=== PATIENT | female | born 1975 | race African-American/Black ===

== ENCOUNTER 2019-12-19 06:36 | Outpatient (CLI) | payer OTHER, SELFPAY ==
--- NOTE | ~2019-12-19 | NM_ITS ---
EXAMINATION: NM erik stress w perfusion DATE: 12/19/2019 10:27 INDICATION: Congestive heart failure. Hypertensive heart disease. TECHNIQUE: Rest images were obtained following intravenous administration of 10.1 mCi Tc99m tetrofosm in (Myoview). The patient was infused intravenously with Lexiscan (regadenoson). Then, 29.1 mCi Tc99m tetrofosmin (Myoview) was administered intravenously, and stress images were obtained. Data was harlan nstructed into short axis and horizontal and vertical long axis SPECT images. Gated SPECT images were also obtained. COMPARISON: None. FINDINGS: There is no definite reversible or fixed perfusion abnormality to suggest ischemia or infar ction. There is no segmental wall motion abnormality. Left ventricular ejection fraction measures > 70%. IMPRESSION: 1. No definite ischemia or infarct. 2. Normal left ventricular ejection fraction measuring >70%. Reviewed, dictated and finalized at location A.
--- NOTE | 2019-12-19 06:57 | EST_ITS ---
Patient Info Name: Ese Beverly Age: 44 years : 1975 Gender: Female Ht: 64 in Wt: 273 lbs BSA: 2.44 m2 Exam Date: 12/19/2019 9:16 AM Exam Location: [facility] Stress Patient Status: Outpatient Admit Date: 12/19/2019 Staff Ordering Physician: Gomez Subramanian MD Attending Provider: Gomez Subramanian MD Exercise Technologist: Gabby Dennis RDCS Exercise Physician: Kenneth Kelley DO Exam Type: CA stress erik w NM Study Info Indications I11.0 - Hypertensive heart disease with heart failure A regadenoson stress test was performed. Summary 1. 1. Negative lexiscan stress test for ischemic ST changes by ECG criteria. 2. 2. Stable hemodynamics throughout the test. 3. 3. Nuclear scan to follow and will be reported separately. Please correlate with it. 4. 4. Patient informed of the above results. Protocol: Lexiscan Stress ECG Details Stage: REST Duration (min): 1 min : 26 sec HR (bpm): 59 SBP (mmHg): 122 DBP (mmHg): 71 Stage: REST Duration (min): 5 min : 35 sec HR (bpm): 61 SBP (mmHg): 122 DBP (mmHg): 71 Stage: STAGE 1 Duration (min): 1 min : 0 sec HR (bpm): 86 SBP (mmHg): 120 DBP (mmHg): 74 Stage: RECOVERY Duration (min): 1 min : 0 sec HR (bpm): 78 SBP (mmHg): 116 DBP (mmHg): 72 Stage: RECOVERY Duration (min): 2 min : 0 sec HR (bpm): 78 SBP (mmHg): 116 DBP (mmHg): 72 Stage: RECOVERY Duration (min): 3 min : 0 sec HR (bpm): 71 SBP (mmHg): 125 DBP (mmHg): 72 Stage: RECOVERY Duration (min): 3 min : 5 sec HR (bpm): 73 SBP (mmHg): 125 DBP (mmHg): 72 Rest HR: 61 bpm Peak HR: 86 bpm Rest Sys BP: 122 mmHg Peak Sys BP: 125 mmHg Max Pred HR: 175 bpm % Max Pred HR: 49 % Target HR: 149 bpm Max RPP: 10,750 bpm*mmHg Termination Reason: Completed protocol Cardiac Symptoms: Vague sensation Total Time: 1 min : 0 sec Rest Diaz BP: 71 mmHg Peak Diaz BP: 72 mmHg Total Dose: 0.4 mg Resting ECG Sinus rhythm. Stress ECG No ST changes. Arrhythmias None. Report Signatures
--- NOTE | 2019-12-19 06:57 | ECHO_ITS ---
Patient Info Name: Ese Beverly Age: 44 years : 1975 Gender: Female Ht: 64 in Wt: 273 lbs BSA: 2.44 m2 HR: 60 bpm BP: 122 / 71 mmHg Technical Quality: Good Exam Date: 12/19/2019 7:12 AM Exam Location: [facility] Patient Status: Outpatient Admit Date: 12/19/2019 Staff Ordering Physician: Gomez Subramanian MD Edge Gluer: Gabby Dennis RDCS Attending Provider: Gomez Subramanian MD Referring Physician: Moris DORANTES; Exam Type: CA echo doppler color flow Study Info Indications I11.0 - Hypertensive heart disease with heart failure Complete two-dimensional, color flow and Doppler transthoracic echocardiogram is performed. Summary 1. Left ventricular chamber dimension is normal. 2. Left ventricular systolic function is normal, estimated at 60-65%. 3. There is mildly increased left ventricular wall thickness. 4. The left ventricular diastolic function is grade I diastolic dysfunction. 5. E/e' 8 is minimally elevated. 6. Global longitudinal strain is mildly abnormal at -16.2%. 7. There is trace aortic valve regurgitation. 8. No pulmonary hypertension, estimated pulmonary arterial systolic pressure is 27 mmHg. Left Ventricle E/e' 8 is minimally elevated. Global longitudinal strain is mildly abnormal at -16.2%. Left ventricular chamber dimension is normal. Left ventricular systolic function is normal, estimated at 60-65%. There is mildly increased left ventricular wall thickness. The left ventricular diastolic function is grade I diastolic dysfunction. Right Ventricle Right ventricular chamber dimension is normal. Right ventricular systolic function is normal. Left Atria Left atrial chamber dimension is normal. Right Atria Right atrial chamber dimension is normal. Aortic Valve The aortic valve is trileaflet. There is no aortic valve stenosis. There is trace aortic valve regurgitation. Pulmonic Valve There is no pulmonic regurgitation. Mitral Valve There is no mitral valve stenosis. There is no mitral valve regurgitation. Tricuspid Valve There is no tricuspid valve regurgitation. No pulmonary hypertension, estimated pulmonary arterial systolic pressure is 27 mmHg. Pericardium/Pleural There is no pericardial effusion. Inferior Vena Cava Normal inferior vena cava with >50% collapse upon inspiration consistent with normal right atrial pressure, 5 mmHg. Aorta The aortic root size at the sinus of Valsalva is normal. Left Ventricular Outflow Tract Name Value Normal LVOT 2D LVOT Diameter 2.0 cm LVOT Doppler LVOT Peak Gradient 8 mmHg LVOT Mean Gradient 3 mmHg LVOT VTI 26 cm LVOT VTI/AV VTI Ratio 0.9 LVOT Stroke Volume 81 ml LVOT CO 5.0 l/min LVOT CI 2.1 l/min/m2 Pulmonic Valve Name Value Normal
== END 2019-12-19 06:37 | disposition home or self-care (01) ==
PROVIDERS: PCP Internal Medicine; Visit Provider Internal Medicine
DX: I11.0 Hypertensive heart disease with heart failure (principal); E11.9 Type 2 diabetes mellitus without complications
CPT/HCPCS: 78452; 93017; 93306; A9502; J2785